=== PATIENT | female | born 1985 | race Caucasian/White ===

== ENCOUNTER 2022-10-27 13:18 | Emergency (ER) | payer MEDICAID, SELFPAY ==
[2022-10-27 13:28] VITALS: BP 133/80; PULSE 69; PULSE 76; RESP 16; RESP 20; TEMP 36.8; TEMP 37.1; O2SAT 100; BMI 23.8
[2022-10-27 13:29] VITALS: BP 120/89; RESP 16; O2SAT 99
--- NOTE | 2022-10-27 13:29 | CRLHL7_ITS ---
For Patients: As a result of the Century Cures Act, medical imaging exams and procedure reports are released immediately into your electronic medical record. You may view this report before your referring provider. If you have questions, please contact your health care provider. INDICATION: Fall from ladder. TECHNIQUE: CT head without contrast. COMPARISON: None. FINDINGS: CSF spaces: Within normal limits for age. Brain parenchyma and extra-axial spaces: The rios-white differentiation is normal. No sign of mass, hemorrhage, or midline shift. No extra-axial fluid collection. Skull base and calvarium: The visualized paranasal sinuses and mastoid air cells demonstrate no acute or significant findings. The visualized orbits are grossly unremarkable. No skull fractures. Left frontal scalp contusion IMPRESSION: Unremarkable noncontrast head CT. Please note that all CT scans at this facility use dose modulation, iterative reconstruction, and/or weight-based dosing when appropriate to reduce radiation dose to as low as reasonably achievable. Dictated by Cordell Kolb MD @ 10/27/2022 2:30:58 PM (Electronically Signed)
--- NOTE | 2022-10-27 13:29 | CRLHL7_ITS ---
For Patients: As a result of the Century Cures Act, medical imaging exams and procedure reports are released immediately into your electronic medical record. You may view this report before your referring provider. If you have questions, please contact your health care provider. INDICATION: Fall from ladder. TECHNIQUE: CT cervical spine without contrast. COMPARISON: None. FINDINGS: Vertebrae: Alignment is normal. There are no fractures or suspicious bony lesions. Discs and facet joints: Disc spaces are within normal limits. Really upper cervical facet arthrosis is present appeared Extraspinal findings: Prevertebral soft tissues, visualized airway, and visualized lungs are unremarkable. IMPRESSION: 1. No acute osseous abnormality. 2. Early upper cervical facet arthrosis. Please note that all CT scans at this facility use dose modulation, iterative reconstruction, and/or weight-based dosing when appropriate to reduce radiation dose to as low as reasonably achievable. Dictated by Cordell Kolb MD @ 10/27/2022 2:35:37 PM (Electronically Signed)
--- NOTE | 2022-10-27 13:30 | ED.FALL ---
HPI - Fall General Chief Complaint: Fall/Minor Trauma Stated Complaint: Fall, head trauma Time Seen by Provider: 10/27/22 13:25 History of Present Illness HPI Narrative: This 37-year-old female comes in by ambulance because of a fall from a ladder that occurred just prior to arrival. She was 7 or 8 ft on a ladder attempting to pull snow from the roof. The ladder gave way and she fell backwards hitting her head on concrete. She states that she did not have loss of consciousness. She does laceration to the occipital portion of her head. She did get up and ambulate. She does not report any other injury. She states that her elbows are a little bit sore bilaterally. She does not report any neck pain but states that she has a significant headache. She is not on any blood thinners and is in otherwise good health. She is currently menstruating and denies possibility of . Related Data Home Medications Medication Instructions Recorded Confirmed desogestrel 0.15 mg-ethinyl 1 tab PO DAILY 10/27/22 10/27/22 estradiol 0.03 mg tablet (Enskyce) Previous Rx's Medication Instructions Recorded hydrocodone 5 mg-acetaminophen 325 1 tab PO Q4-6H PRN pain #10 tabs 10/27/22 mg tablet ketorolac 10 mg tablet 10 mg PO Q8H 5 days #15 tabs 10/27/22 Allergies Allergy/AdvReac Type Severity Reaction Status Date / Time No Known Drug Allergies Allergy Verified 10/27/22 13:33 Review of Systems Status of ROS: Reports: 10 or more systems reviewed and unremarkable except as noted in History and below Narrative: Constitutional: No fevers, no weight gain or loss. Eyes: No discharge. No vision changes. HENT: No congestion, no sore throat, no ear pain. Cardiovascular: No chest pain, no palpitations. Respiratory: No shortness of breath, no wheezes, no cough. Gastrointestinal: No abdominal pain, no vomiting, no diarrhea. Genitourinary: No dysuria, no hematuria. Musculoskeletal: Normal range of motion. Skin: No rashes, no pruritis. Neurological: No dizziness, weakness, sensory change, speech change. Endo/Heme/Allergies: No bruising or bleeding. No polydipsia. Pysch: no suicidality, no anxiety, no insomnia. All other systems reviewed and are negative. Exam Narrative: Exam Narrative: Constitutional: Well-developed, well-nourished, no acute distress. HEENT: Scalp laceration in the occipital region. Neck: Normal range of motion. Nontender. Supple. Heart: Regular. No murmurs. Normal rate. Intact distal pulses. Lungs: Clear to auscultation. No chest discomfort. No wheezes, rhonchi, or rales. Abdomen: Normal bowel sounds. Nontender. No rebound tenderness. Genitalia: Deferred. Back: No midline tenderness. Normal range of motion. Extremities: Normal range of motion. No injury. Skin: Intact. No rash. Warm. No erythema or pallor. Neurologic: No altered sensation. No weakness. Alert and oriented. Psychiatric: No suicidality. No anxiety or depression. No insomnia. Nursing notes and vitals signs are reviewed. Const: Vital Signs, click to edit/add: Vital Signs - 24 hr 10/27/22 13:28 Temperature 98.2 F Pulse Rate [Pulse Oximeter] 69 Respiratory Rate 16 Blood Pressure [Ri ght Upper Arm] 133/80 Pulse Oximetry 100 Oxygen Delivery Me thod Room Air Course Vital Signs Vital signs: Initial Vital Signs Temperature 98.2 F 10/27/22 13:28 Temperature Source Temporal Artery Scan 10/27/22 13:28 Pulse Rate 69 10/27/22 13:28 Pulse Rhythm 10/27/22 13:28 Respiratory Rate 16 10/27/22 13:28 Blood Pressure 133/80 10/27/22 13:28 Blood Pressure Mean 97 10/27/22 13:28 Blood Pressure Position Sitting 10/27/22 13:28 Pulse Oximetry 100 10/27/22 13:28 Oxygen Delivery Method 10/27/22 13:28 Vital Signs Temperature 98.2 F 10/27/22 13:28 Pulse Rate 69 10/27/22 13:28 Respiratory Rate 16 10/27/22 13:28 Blood Pressure 133/80 10/27/22 13:28 Pulse Oximetry 100 10/27/22 13:28 Oxygen Delivery Method 10/27/22 13:28 Temperature 98.2 F 10/27/22 13:28 Pulse Rate 69 10/27/22 13:28 Respiratory Rate 16 10/27/22 13:28 Blood Pressure 133/80 10/27/22 13:28 Pulse Oximetry 100 10/27/22 13:28 Oxygen Delivery Method 10/27/22 13:28 MDM - Fall MDM Narrative Medical decision making narrative: Primary Survey: Vital Signs are within normal limits. Airway: Open. Breathing: Easy. Circulation: no obvious bleeding; normal capillary refill. Disability: GCS is 15. Normal pupillary response and motor movements. Secondary Survey: Head: Occipital scalp laceration with no underlying hematoma. The length of the wound is 8 cm. Neck: No midline tenderness. ROM intact. Chest: Non tender. No external signs of trauma. Abdomen: Non tender. No rebound tenderness. Normal bowel sounds. Pelvis/Genitals: No tenderness to A/P and lateral stress. No blood at the urethral meatus. Extremities: Atraumatic. Back: No midline tenderness. No sign of injury. Primary and Secondary surveys are completed. The patient's GCS is 15. The scalp wound was cleansed and explored to its base. I discussed repair options with the patient who preferred to have suture repair. I did then trim her hair back from the wound about 1 cm on either side and then used blue colored 3.0 Prolene for suture repair. Anesthesia was acquired using lidocaine 1% with epinephrine. Total of 8 sutures were placed in interrupted fashion. Instructions were given regarding wound care and the need to return to clinic or urgent care in 5-7 days for suture removal. This patient did not have loss of consciousness but does have significant headache. She did receive IV dose of Dilaudid 0.5 mg and Zofran 4 mg which brought sufficient relief. She may be showing signs and symptoms of concussion without loss of consciousness. I did discuss matters pertaining to management of a concussion. She did received prescription for Toradol and [place]. Lab Data Labs: Lab Results 10/27/22 10/27/22 Range/Units 13:26 13:26 WBC 4.11 L (4.50-11.00) K/uL RBC 4.04 (4.00-5.20) m/uL Hgb 12.9 (12.0-16.0) gm/dL Hct 38.1 (33.0-51.0) % MCV 94 (80-100) fL MCH 32 (26-34) pg MCHC 34 (32-36) gm/dL RDW Coeff of Olga 11.5 (11.5-15.5) % Plt Count 238 (140-440) K/uL Neut % (Auto) 47.0 (42.0-72.0) % Lymph % (Auto) 39.2 (20-44) % [place] % (Auto) 8.3 (0.0-11.0) % Eos % (Auto) 4.1 (0.0-7.0) % Baso % (Auto) 1.2 (0.0-3.0) % Neut # (Auto) 1.90 (1.7-7.0) K/uL Lymph # (Auto) 1.60 (0.90-2.90) K/uL [place] # (Auto) 0.30 (0.00-0.90) K/UL Eos # (Auto) 0.20 (0.00-0.50) K/uL Baso # (Auto) 0.00 (0.00-0.30) K/uL Sodium 140 (135-149) mmol/L Potassium 3.6 (3.6-5.1) mmol/L Chloride 109 (96-114) mmol/L Carbon Dioxide 24 (20-32) mmol/L BUN 13 (5-24) mg/dL Creatinine 0.7 (0.5-1.5) mg/dL Estimated Creat Clear 88.72 Estimated GFR 116 ml/min Glucose 115 (60-115) mg/dL Calcium 8.3 L (8.4-10.6) mg/dL Imaging Data CT Cervical Spine: Radiologist's impression: 1. No acute osseous abnormality. 2. Early upper cervical facet arthrosis. CT scan - head: Radiologist's impression: Unremarkable noncontrast head CT. Discharge Plan Discharge Clinical Impression: Concussion without loss of consciousness, Laceration of scalp Patient Disposition: Home w/ Parent or Adult Condition: Improved Additional Instructions: Keep wound clean and dry. Return to clinic or urgent care in 5-7 days for suture removal. Eight sutures were placed using blue colored 3.0 Prolene suture. Prescriptions: New hydrocodone-acetaminophen 5-325 mg tablet 1 tab PO Q4-6H PRN (Reason: pain) Qty: 10 0RF ketorolac 10 mg tablet 10 mg PO Q8H 5 Days Qty: 15 0RF No Action desogestrel-ethinyl estradiol [Enskyce] 0.15-0.03 mg tablet 1 tab PO DAILY Label Comments: TAKE 1 TABLET BY MOUTH ONCE DAILY Follow Up/Referrals: José Miguel Gutiérrez MD [Staff Physician] - Stand Alone Forms: [employer] Info Instructions
[2022-10-27 13:41] LABS: Basophils Percent Auto 1.2 % (0.0-3.0); Eosinophils Percent Auto 4.1 % (0.0-7.0); Hematocrit 38.1 % (33.0-51.0); Hemoglobin* 12.9 gm/dL (12.0-16.0); Immature Granulocytes Pct Auto 0.2 %; Lymphocytes Percent Auto 39.2 % (20-44); Mean Corpuscular HGB Conc 34 gm/dL (32-36); Mean Corpuscular Hemoglobin 32 pg (26-34); Mean Corpuscular Volume 94 fL (80-100); Monocytes Percent Auto 8.3 % (0.0-11.0); Platelet Count* 238 K/uL (140-440); RDW Coefficient of Variation % 11.5 % (11.5-15.5); Red Blood Count 4.04 m/uL (4.00-5.20); White Blood Count* 4.11 K/uL (4.50-11.00)
[2022-10-27 13:51] LABS: Chloride* 109 mmol/L (96-114); Potassium* 3.6 mmol/L (3.6-5.1); Sodium* 140 mmol/L (135-149)
[2022-10-27 13:54] LABS: Blood Urea Nitrogen* 13 mg/dL (5-24); Carbon Dioxide* 24 mmol/L (20-32); Creatinine* 0.7 mg/dL (0.5-1.5); Est. Creatinine Clearance* 88.72; Estimated Glomerular Filt Rate 116 ml/min; Glucose* 115 mg/dL (60-115)
[2022-10-27 13:55] LABS: Calcium* 8.3 mg/dL (8.4-10.6)
[2022-10-27 13:57] LABS: Slide Review Reflex No
[2022-10-27] MEDS: HYDROmorphone 0.5 mg/0.5 ml inj IVP (14:00)
[2022-10-27] MEDS: ONDANSETRON 2 MG/ML inj 4 MG IVP (14:01)
[2022-10-27 15:55] VITALS: BP 121/84; RESP 16; O2SAT 100
== END 2022-10-27 15:42 | disposition home or self-care (01) ==
PROVIDERS: Emergency Provider Emergency Medicine Emergency Medical Services; PCP Family Medicine
DX: S01.01XA Laceration without foreign body of scalp, initial encounter (principal); S06.0X0A Concussion without loss of consciousness, initial encounter; W11.XXXA Fall on and from ladder, initial encounter
CPT/HCPCS: 12002; 36415; 70450; 72125; 80048; 85025; 96374; 96375; 99283; 99285; 99291; G0390; J1170; J2405

== ENCOUNTER 2025-07-28 08:48 | Emergency (ER) | payer MEDICAID, SELFPAY ==
--- OUTSIDE RECORDS SUMMARY | 2025-07-28 08:50 | XMS_ITS | Clinical Summary ---
Author Organization [employer] [facility] Address [address] [place] [id number] Care Team Providers Care Non Destructive Testing Supervisor Name Role Phone Jamie Ramsey MD Primary Care Provider [phone] Allergies No known active allergies Medications norgestimate-eth inyl estradiol (TRI-SPRINTEC) 0.18/0.215/0.25 mg-35 mcg (28) tablet Take 1 tablet by mouth once daily. 0 11/21/2016 Active VITS #90/IRON FUM/FA ( VIT NO.90-IRON FUM-FA) 9 mg iron- 500 mcg tab Take by mouth. 0 11/21/2016 Active albuterol (PROAIR RESPICLICK) 90 mcg/actuation INHALER Inhale by mouth every 4 hours. 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 Gender Identity Not on file Sexual Orientation Not on file Obstetrics History Last Filed Vital Signs Vital Sign Reading Time Taken Comments Blood Pressure 100/64 11/21/2016 10:10 AM INSULATION MANAGER Pulse 76 11/21/2016 10:10 AM INSULATION MANAGER Temperature 37.5 C (99.5 F) 11/21/2016 10:10 AM INSULATION MANAGER Respiratory Rate 16 11/21/2016 10:10 AM INSULATION MANAGER Oxygen Saturation 98% 11/21/2016 10:10 AM INSULATION MANAGER Inhaled Oxygen Concentration - - Weight 60.8 kg (134 lb) 11/21/2016 10:10 AM INSULATION MANAGER Height 162.6 cm (5' 4) 11/21/2016 10:10 AM INSULATION MANAGER Body Mass Index 23 11/21/2016 10:10 AM INSULATION MANAGER Plan of Treatment Health Maintenance Due Date Last Done Comments Tetanus booster 1998 Depression screening for age 12+ 1999 HIV for age 15-65 2002 Hepatitis C screening for ag e 18-79 2005 Hepatitis B series for 19+ ( 1 of 3 - 19+ 3-dose series) 2006 Pap test for age 21-65 2008 HPV series for age 9-45 (1 - 3-dose SCDM series) 2014 BMI (ht and wt on same day) for age 18+ 11/21/2017 11/21/2016 COVID-19 vaccine series ( - season) 2025 Influenza Vaccine (#1) 2025 RSV vaccine for adults or (1 - 1-dose 75+ series) 2062 Pneumococcal series for age 6-49 Aged Out No longer eligible based on patient's age to complete this topic Care Teams Non Destructive Testing Supervisor Relationship Specialty Start Date End Date Jamie Ramsey MD PCP - General 10/19/06
[2025-07-28 08:51] VITALS: BP 128/87; PULSE 88; RESP 18; TEMP 37.3; O2SAT 100; BMI 21.9
--- NOTE | 2025-07-28 09:06 | ED.GENADULT ---
HPI - General Adult General Chief complaint: Laceration/Wound Stated complaint: Fall, face lac Time Seen by Provider: 07/28/25 08:59 History of Present Illness HPI narrative: Patient presents to the emergency department complaining of a face lac. Patient states last night around midnight she fell onto a wood pile. Patient did not lose consciousness. Patient remembers the fall. 40-year-old woman presenting to the emergency department having sustained a laceration to her face, ear. Last night sitting around a campfire she reach back for a ball while playing with her dog and tumbled back cutting her face and ear. She did spend some time cleaning it. It was late last night and having had some beers thought better to address this in the morning. No loss of consciousness. No neck or back pain. Jaw is sore but dentition feels normal. Related Data Home Medications ?Medication ?Instructions ?Recorded ?Confirmed desogestrel 0.15 mg-ethinyl 1 tab PO DAILY 10/27/22 07/28/25 estradiol 0.03 mg tablet (Enskyce) albuterol sulfate 90 mcg/actuation 2 puff inhalation Q6H PRN 07/23/23 07/28/25 aerosol inhaler fluticasone 250 mcg-salmeterol 50 1 inh inhalation BID 07/23/23 07/28/25 mcg/dose blistr powdr for inhalation (Advair Diskus) Previous Rx's ?Medication ?Instructions ?Recorded cetirizine 10 mg capsule (Zyrtec) 10 mg PO QDAY #90 caps 07/23/23 Allergies Allergy/AdvReac Type Severity Reaction Status Date / Time No Known Drug Allergies Allergy Verified 07/28/25 08:55 Review of Systems Status of ROS: Reports: 6 or more systems reviewed and unremarkable except as noted in History and below [facility] Medical History Sore throat ?J02.9 - Acute pharyngitis, unspecified (ICD-10) Seasonal allergies ?J30.2 - Other seasonal allergic rhinitis (ICD-10) Social History Smoking Status: Never smoker Exam Narrative: Exam Narrative: Pleasant. NAD. Breathing easily. Neck is supple nontender. Back appears to be nontender. Dentition intact. Sore to palpation at the left TMJ. She indicates some discomfort into the left mandible as well but not markedly so to palpation. No irregularity noted. There is blood about the left ear. Examination shows irregular laceration that has her earlobe from attachment over a distance of 5/8 inch. Anterior to the left ear onto the maxilla and running perpendicular is a patch of morning babysitter abrasion with a deep aspect that is around 3/16 in wide and 1-1/4 inch in length deepening to a larger ulcer more distant from the ear. No defect to the bony structures. Extraocular movements are full. Const: Vital Signs, click to edit/add: Vital Signs - 24 hr 07/28/25 08:51 Temperature 99.1 F Pulse Rate [Right Pulse Oximeter] 88 Respiratory Rate 18 Blood Pressure [Ri ght Upper Arm] 128/87 Pulse Oximetry 100 Oxygen Delivery Me thod Room Air Documenting provider has reviewed patient's vital signs: yes Course Vital Signs Vital signs: Initial Vital Signs Temperature 99.1 F 07/28/25 08:51 Temperature Source Temporal Artery Scan 07/28/25 08:51 Pulse Rate 88 07/28/25 08:51 Pulse Rhythm Regular 07/28/25 08:51 Pulse Strength 3+ Normal 07/28/25 08:51 Respiratory Rate 18 07/28/25 08:51 Blood Pressure 128/87 07/28/25 08:51 Blood Pressure Mean 100 07/28/25 08:51 Blood Pressure Position Sitting 07/28/25 08:51 Pulse Oximetry 100 07/28/25 08:51 Oxygen Delivery Method Room Air 07/28/25 08:51 Vital Signs Temperature 99.1 F 07/28/25 08:51 Pulse Rate 88 07/28/25 08:51 Respiratory Rate 18 07/28/25 08:51 Blood Pressure 128/87 07/28/25 08:51 Pulse Oximetry 100 07/28/25 08:51 Oxygen Delivery Method Room Air 07/28/25 08:51 Temperature 99.1 F 07/28/25 08:51 Pulse Rate 88 07/28/25 08:51 Respiratory Rate 18 07/28/25 08:51 Blood Pressure 128/87 07/28/25 08:51 Pulse Oximetry 100 07/28/25 08:51 Oxygen Delivery Method Room Air 07/28/25 08:51 Medical Decision Making MDM Narrative Medical decision making narrative: Will definitely need repair. Need to reattached her earlobe/ear and I think can decrease scarring by over-sewing this deeper aspect of the abrasion over the length of 1 in. Does not appear to need any imaging. Does not appear to have affected cartilaginous structures. Procedure note Indication is need for repair of deep abrasion and ear laceration. Anesthesia with 1% lidocaine. Scrubbed area with Hibiclens and water solution. Very good anesthesia was achieved. Sutured the abrasion closed with 5-0 interrupted Ethilon sutures. Extended the aspect closer to the ear with a little undermining to diminish dog-earing. Repaired u-shaped a laceration of the earlobe suturing both sides with 6-0 Ethilon. Required horizontal mattress as well for better cosmesis and deep closure. Wounds are well approximated. Bleeding has been controlled. Antibiotic ointment and modified Band-Aid was placed. Tolerated quite well. One point did feel 1 of the placed sutures. See patient discharge plan for further discussion sutures out in 5 days. antibiotic ointment for 3 days and then to a dry dressing. Otherwise keep secondarily-covered think, as discussed, while working. ok to get wet but try not to soak while sutures are in. If/when need to shower, would probably keep Band-Aid on and then remove after. for further scar reduction/wound healing if desired -- after the scab falls, can apply daily vitamin e oil or something like maderma or silicone-containing ointments or bandaids daily. especially protect from sun exposure for the first 9 - 12 months. Some whitish tissue should grow ahead of that abraded, deficit area ahead of the sutures on your cheek. That is new skin and not purulence. Try not to scrape it off. Watch for spreading redness after 2 days accompanied by heat, swelling, marked increase in pain, purulent drainage. Medical Records Medical records reviewed: Yes I reviewed the patient's medical records Discharge Plan Discharge Clinical Impression: Laceration of earlobe, Abrasion Patient Disposition: Home, Self-Care Condition: Improved Additional Instructions: sutures out in 5 days. antibiotic ointment for 3 days and then to a dry dressing. Otherwise keep secondarily-covered think, as discussed, while working. ok to get wet but try not to soak while sutures are in. If/when need to shower, would probably keep Band-Aid on and then remove after. for further scar reduction/wound healing if desired -- after the scab falls, can apply daily vitamin e oil or something like maderma or silicone-containing ointments or bandaids daily. especially protect from sun exposure for the first 9 - 12 months. Some whitish tissue should grow ahead of that abraded, deficit area ahead of the sutures on your cheek. That is new skin and not purulence. Try not to scrape it off. Watch for spreading redness after 2 days accompanied by heat, swelling, marked increase in pain, purulent drainage. Prescriptions: No Action albuterol sulfate 90 mcg/actuation HFA aerosol inhaler 2 puff inhalation Q6H PRN fluticasone propion-salmeterol [Advair Diskus] 250-50 mcg/dose blister with device 1 inh inhalation BID Zyrtec 10 mg capsule 10 mg PO QDAY Qty: 90 3RF desogestrel-ethinyl estradiol [Enskyce] 0.15-0.03 mg tablet 1 tab PO DAILY Patient Comments: TAKE 1 TABLET BY MOUTH ONCE DAILY Follow Up/Referrals: Isela Estrella MD [Primary Care Provider, Family Practice] Stand Alone Forms: [employer] Info Instructions
--- OUTSIDE RECORDS SUMMARY | 2025-07-28 09:34 | XMS_ITS | Patient Health Record ---
Author Organization [facility] Address [address] [place] [address] Care Team Providers Care Triage Nurse Name Role Phone Isela Estrella Primary Care Provider Unavail able LEATHA VELAZQUEZ Unavailable [phone] Allergies No Known Allergies Reason For Referral No Information Medications Medication SIG (Take, Route, Fr equency, Duration) Notes Start Date End Date Status Montelukast Sodium A ctive Advair HFA Active valACYclovir HCl Act shabbir Social History Tobacco Use: Social History Observation Description Date Details (start date - stop date) Former Smoker NA - NA Social History Alcohol Use: Social Info Question Answer Notes Recreational drugs Recreational Drug Use: No Alcohol Screen Did you have a drink containing alcohol in the past year? Yes How often did you have a drink containing alcohol in the past year? 2 to 4 times a month (2 points) How many drinks did you have on a typical day when you were drinking in the past year? 1 or 2 drinks (0 point) How often did you have 6 or more drinks on one occasion in the past year? Never (0 point) Points 2 Interpretation Negative Tobacco Use: Social Info Question Answer Notes Tobacco use/smoking Are you a former smoker Problems Problem Type SNOMED Code ICD Code Onset Dates Problem Status W/U Status Risk Notes Problem Dysphagia (80841448) Dysphagia, unspecified type (R13.10) Active confirmed Problem Chronic throat clearing (R09.89) Active confirmed Plan Of Treatment No Information Insurance Providers Payer Name Payer Address Payer Phone Subscriber Number Group Number Insured Name Patient Relationship to Insured Coverage Start Date Coverage End Date [facility] [employer] [address] [place], [place] [id number] Rubina Collier Self - patient is the insured Medical (General) History Medical History History ICD Code Asthma Surgical History Surgery Date(Month/Year) C Section [place] teeth 2006
== END 2025-07-28 11:14 | disposition home or self-care (01) ==
PROVIDERS: Emergency Provider Family Medicine; PCP Family Medicine
DX: S01.81XA Laceration without foreign body of other part of head, initial encounter (principal); S01.312A Laceration without foreign body of left ear, initial encounter; W18.39XA Other fall on same level, initial encounter
CPT/HCPCS: 12011; 99283; 99284